=== PATIENT | male | born 1985 | race Caucasian/White ===

== ENCOUNTER 2016-11-05 09:35 | Emergency (ER) | payer MEDICAID ==
[2016-11-05 09:45] VITALS: BP 144/87; PULSE 85; RESP 18; TEMP 98.3; O2SAT 100
[2016-11-05] MEDS ORDERED: TDAP Vaccine 0.5 mL Syr IM ONE (09:48)
[2016-11-05] MEDS ORDERED: Silver Sulfadiazine 1% Cream (20 gm) TOP STA (09:48)
--- NOTE | 2016-11-05 09:52 | ED PDOC ---
Arrival/HPI - General Chief Complaint: Abnormal Skin Integrity Time Seen by Provider: 11/05/16 09:48 Historian: Patient - History of Present Illness Narrative History of Present Illness (Text): 11/05/16 09:53 30-year-old male presents today with blisters to the fourth and fifth fingers since Sunday. Patient states on Sunday his doctor tried to freeze off what was believed to be warts on the right hand along the dorsal aspect of the fourth finger and fifth finger. Patient states he now has blisters in those areas. The warts frozen off. He is complaining of 6 out of 10 burning pain to the area. No medications have been taken for pain at home. Patient is unsure of his last tetanus shot. No other complaints Time/Duration: Other (3 days) Symptom Onset: Gradual Symptom Course: Worsening Quality: Burning Severity Level: 6 Past Medical History - Provider Review Nursing Documentation Reviewed: Yes - Travel History Have you recently traveled outside [place] w/in the past 3 mons?: No - Tetanus Immunization Tetanus Immunization: Unknown - Pulmonary Hx Respiratory Disorders: No - Neurological Hx Neurological Disorder: No - HEENT Hx HEENT Disorder: No - Renal Hx Renal Disorder: No - Endocrine/Metabolic Other/Comment: PRE DM - Hematological/Oncological Hx Blood Disorders: No - Integumentary Hx Dermatological Disorder: Yes Other/Comment: WARTS - Musculoskeletal/Rheumatological Hx Musculoskeletal Disorders: No - Gastrointestinal Hx Gastrointestinal Disorders: No - Genitourinary/Gynecological Hx Genitourinary Disorders: No - Psychiatric Hx Psychophysiologic Disorder: No Hx Substance Use: No Family/Social History - Physician Review Nursing Documentation Reviewed: Yes Family/Social History: Unknown Family HX Smoking Status: Light Smoker < 10 Cigarettes Daily Hx Alcohol Use: No Hx Substance Use: No Allergies/Home Meds Allergies/Adverse Reactions: Allergies No Known Allergies Allergy (Verified 11/05/16 09:43) Review of Systems - Review of Systems Constitutional: absent: Fatigue, Fevers Respiratory: absent: SOB, Cough Cardiovascular: absent: Chest Pain Gastrointestinal: absent: Abdominal Pain, Nausea, Vomiting Musculoskeletal: Arthralgias Skin: Rash, Other (blisters) Neurological: absent: Headache Physical Exam Vital Signs Reviewed: Yes Vital Signs Temp Pulse Resp BP Pulse Ox 11/05/16 09:45 98.3 F 85 18 144/87 100 Temperature: Afebrile Blood Pressure: Normal Pulse: Regular Respiratory Rate: Normal Appearance: Positive for: Well-Appearing, Non-Toxic, Comfortable Pain Distress: None Mental Status: Positive for: Alert and Oriented X 3 - Systems Exam Head: Present: Atraumatic Respiratory/Chest: Present: Clear to Auscultation Cardiovascular: Present: Regular Rate and Rhythm Upper Extremity: Present: Normal ROM, NORMAL PULSES, Tenderness (right hand; there is a blister noted over the dorsal aspect of the 4th finger at the middle phalanx and 2 blisters over the dorsal aspect of the 5th finger at the proximal phalanx; non-circumferential. no erythema; minimal tenderness. ), Swelling, Neurovascularly Intact, Capillary Refill < 2s. No: Erythema Neurological: Present: GCS=15 Skin: Present: Warm, Dry Psychiatric: Present: Alert, Oriented x 3 Medical Decision Making ED Course and Treatment: 11/05/16 09:52 30-year-old male with blisters to the fourth and fifth fingers along the dorsal aspect after having warts removed. Tetanus updated Silvadene applied to the affected areas Motrin given for pain Patient was advised to follow-up with primary care physician. He was advised to apply Silvadene cream. He was advised to return if signs of infection develop Patient verbalizes understanding of discharge instructions and need for immediate followup. all aspects of this case were discussed the attending of record. Impression: Blister, finger Motrin every 6 hours as needed for pain Silvadene applied 3 times daily to the affected area Keep the wounds clean and dry Follow-up with the primary care physician within the next 2 days Return immediately if signs of infection develop: High fevers, increasing pain, increasing swelling, increasing redness or if purulent discharge develops. Return if any other concerning symptoms develop Disposition/Present on Arrival - Present on Arrival Any Indicators Present on Arrival: No History of DVT/PE: No History of Uncontrolled Diabetes: No Urinary Catheter: No History of Decub. Ulcer: No History Surgical Site Infection Following: None - Disposition Have Diagnosis and Disposition been Completed?: Yes Diagnosis: Blister of finger without infection Disposition: HOME/ ROUTINE Disposition Time: 09:51 Patient Plan: Discharge Condition: GOOD Discharge Instructions (ExitCare): Blister (ED) Additional Instructions: Motrin every 6 hours as needed for pain Silvadene applied 3 times daily to the affected area Keep the wounds clean and dry Follow-up with the primary care physician within the next 2 days Return immediately if signs of infection develop: High fevers, increasing pain, increasing swelling, increasing redness or if purulent discharge develops. Return if any other concerning symptoms develop Prescriptions: Ibuprofen [Motrin] 600 mg PO Q6H PRN #20 tab PRN Reason: pain/fever reduction Silver Sulfadiazine 1% [Silver Sulfadiazine] 1 appl TP BID #1 jar Referrals: Seema Murphy MD [Staff Provider] - Follow up with primary Govind Capps MD [Staff Provider] - Follow up with primary Forms: WORK NOTE
== END 2016-11-05 10:13 | disposition home or self-care (01) ==
LOC: ED 09:35
DX: S60.424A Blister (nonthermal) of right ring finger, initial encounter (principal); S60.426A Blister (nonthermal) of right little finger, initial encounter; X58.XXXA Exposure to other specified factors, initial encounter; Z23 Encounter for immunization

== ENCOUNTER 2018-05-24 07:13 | Outpatient (CLI) | payer SELFPAY | END 2018-05-24 07:14 | disposition home or self-care (01) | LOC: LAB 07:13 ==